=== PATIENT | male | born 1940 | race Hispanic/Latino ===

== ENCOUNTER → 2020-05-12 | Outpatient (CLI) | payer MEDICARE ==
[~2020-05-12] MED LIST: GADOBENATE DIMEGLUMINE 1 ML IV ONE; IOPAMIDOL 370 MG/ML 200 ML INFUS..BTL INJ ONE; SODIUM CHLORIDE 0.9% 50ML 50 ML ONE
[2020-05-12 09:33] LABS: BLOOD UREA NITROGEN 9 mg/dL (7-26); BUN/CREATININE RATIO 10 (6-25); CREATININE, SERUM 0.92 mg/dL (0.72-1.25); EST GLOMERULAR FILTRATION RATE > 60 ML/MIN (60-)
--- NOTE | 2020-05-12 11:26 | Diagnostic Imaging Report ---
History: Staging, metastatic poorly differentiated carcinoma Comparison studies: None Technique: Axial DWI, precontrast axial T1, axial T2 FLAIR, axial T2*GRE, sagittal and axial T2 and postcontrast axial, coronal and sagittal T1 FS. Intravenous contrast: 13 cc of MultiHance Findings: Scalp: No abnormal signal. No masses. Bone marrow: Normal in signal intensity. Brain sulci: Mildly prominent. Ventricles: Mild compensatory dilatation. Extra axial spaces: No mass or fluid collection. Parenchyma: Peripherally enhancing 10 mm lesion in the left brachium pontis with central T2 hyperintense cystic or necrotic changes with mild surrounding edema, 6 mm enhancing lesion in the posterior right precentral gyrus at the stevenson-white junction near the "hand knob" and 5 mm enhancing lesion in the posterior right cerebellum are without significant mass effect. Possible additional 4 mm enhancing lesion present in the midline cerebellar vermis as seen on the coronal postcontrast sequence series 10, image 6. A few scattered T2 FLAIR hyperintense foci in the supratentorial white matter are nonspecific but are most compatible with chronic microvascular ischemic changes. No hemorrhage or acute ischemia. Suprasellar region: No abnormalities. Craniocervical junction: Patent foramen magnum. No Chiari one malformation. Vessels: Normal flow-voids in the arteries and sinuses. Incidental findings: Bilateral intraocular lens replacement. IMPRESSION: 1. At least 3, possibly 4, small enhancing intracranial lesions compatible with metastases. Largest metastasis in the left middle cerebellar peduncle measures 10 mm and is without significant mass effect. 2. Mild chronic microvascular ischemic changes. Signed by: Dr. Jun Moran M.D. on 05/12/2020 11:23 AM
--- NOTE | 2020-05-12 12:59 | Diagnostic Imaging Report ---
EXAM: CT Chest, Abdomen and Pelvis WITH intravenous contrast INDICATION: Metastatic carcinoma COMPARISON: None. TECHNIQUE: The chest, abdomen and pelvis were scanned utilizing a multidetector helical scanner from the thoracic inlet to the pubic symphysis following administration of IV contrast. Coronal and sagittal reformations were obtained. Scan was performed during portal venous phase. IV CONTRAST: 100cc Isovue 370 ORAL CONTRAST: None COMPLICATIONS: None RADIATION DOSE: Total DLP: 427 mGy*cm Dose modulation, iterative reconstruction, and/or weight based adjustment of the mA/kV was utilized to reduce the radiation dose to as low as reasonably achievable. FINDINGS: LINES/ TUBES: None. LUNGS AND AIRWAYS: The central airways are patent. Mild upper lobe predominant emphysema. Mild biapical pleural parenchymal thickening/scarring. 4 mm right upper lobe pulmonary nodule (series 4 image 31). No focal consolidation or pulmonary edema. Airways are normal. PLEURA: The pleural spaces are clear. HEART AND MEDIASTINUM: The thyroid gland is normal. No supraclavicular or axillary lymphadenopathy. Enlarged centrally necrotic prevascular mediastinal lymph node measures up to 2.6 x 2.4 cm. Enlarged subcarinal lymph node measures up to 4.4 x 1.8 cm. Left hilar lymphadenopathy up to 1.4 cm. The heart is not enlarged. No pericardial effusion. Scattered calcified and noncalcified atherosclerotic plaque of the thoracic aorta. Mild scattered coronary artery calcifications. HEPATOBILIARY: Subcentimeter hepatic hypodensities compatible with cysts. No additional focal liver lesion. No biliary ductal dilation. Unremarkable gallbladder. SPLEEN: No splenomegaly. PANCREAS: No focal masses or ductal dilatation. ADRENALS: No adrenal nodules. KIDNEYS/URETERS: No hydronephrosis, stones, or solid mass lesions. PELVIC ORGANS/BLADDER: The prostate is enlarged, measuring up to 5.3 x 4.6 x 3.5 cm, and indents the posterior bladder. PERITONEUM / RETROPERITONEUM: No free air or fluid. LYMPH NODES: No abdominal/pelvic lymphadenopathy. VESSELS: Extensive calcified and noncalcified atherosclerotic calcic dictations of the nonaneurysmal distal abdominal aorta and major branches. Moderate distal aortic luminal narrowing. The iliac arteries remain patent. GI TRACT: No abnormal bowel thickening. No bowel obstruction. Normal appendix. BONES AND SOFT TISSUES: Destructive right iliac lytic lesion measures up to 3.1 x 4.8 x 4.1 cm and extends beyond the cortical margins of the medial and lateral iliac bone and acetabular roof. Destructive left iliac crest mass measures up to 7.5 x 4.0 x 4.0 cm IMPRESSION: Destructive right and left iliac lytic lesions consistent with provided history of malignancy. Mediastinal and left hilar lymphadenopathy, concerning for metastatic disease. Nonspecific 4 mm right upper lobe pulmonary nodule. Attention recommended on future follow-up imaging. Prostatomegaly. Signed by: Rossi Llamas MD on 05/12/2020 12:55 PM
== END ==
LOC: MRI 08:37
PROVIDERS: ATTEND Internal Medicine Hematology & Oncology
DX: C79.51 Secondary malignant neoplasm of bone (principal)
CPT/HCPCS: 36415; 70553; 71260; 74177; 82565; 84520; A9577; Q9967